=== PATIENT | female | born 1945 | race Caucasian/White ===

== ENCOUNTER 2018-11-26 10:08 | Day surgery (SDC) | payer BC ==
[2018-11-23 08:20] VITALS: BMI 30.6
[2018-11-26] MEDS ORDERED: LIDOCAINE VISCOUS 2% ORAL/TOP 20 ML UNIT-DOSE CUP ONE (10:46)
[2018-11-26 11:11] VITALS: TEMP 98
--- NOTE | 2018-11-26 12:43 | ECHO ---
Name: ARCHIBALD, MACY Exam:Transesophageal Echocardiogram Study Date: 11/26/2018 11:27 AM Age: 73 yrs Reason For Study: MITRAL REGURGITION Height: 61 in Weight: 154 lb BSA: 1.7 m2 Doppler Measurements & Calculations MV V2 max: 149.7 cm/sec MV max P.0 mmHg MV V2 mean: 98.4 cm/sec MV mean P.3 mmHg MV V2 VTI: 35.5 cm Procedure: A 2D transesophageal echocardiogram with Doppler and color flow Doppler was performed. Informed conse nt for Transesophageal Echocardiogram, and use of a contrast agent as needed, was obtained prior to the proc edure. The patient was brought to the endoscopy suite in a fasting state. An intravenous line was placed. A topical anesthetic agent was used for oropharangeal anesthesia. A bite block was inserted. IV concious sedati on was administered using propafol. A multifrequency, multiplane transesopheageal echocardiographic endoscop e was inserted and manipulated in the standard fashion to achieve multiplane views. The usual views were ob tained; basal, mid-esophageal, transgastric and aortic views. The patient's vital signs, including blood pres sure, heart rate, pulse oximetry and cardiac rhythm were monitored throughout the procedure and remained st able. The patient tolerated the procedure well without evidence of orophangeal or esophageal trauma. There were no complications. The patient was in normal sinus rhythm during the exam. Left Ventricle The left ventricle is normal in size. Left ventricular systolic function is normal. No regional wall motion abnormalities noted. Atria The left atrial size is normal. No thrombus is detected in the left atrial appendage. No left atrial mass or thrombus visualized. Injection of contrast documented no interatrial shunt. Mitral Valve There is mild mitral valve thickening. There is mild mitral annular calcification. There is moderate mitral regurgitation. Tricuspid Valve The tricuspid valve is not well visualized, but is grossly normal. There is mild to moderate tricuspi d regurgitation. Aortic Valve The aortic valve is normal in structure and function. No aortic regurgitation is present. Pulmonic Valve The pulmonic valve is not well visualized. There is no pulmonic valvular regurgitation. Great Vessels There is a small atherosclerotic plaque in descending thoracic aorta and distal aortic arch. Pericardium/Pluera There is no pericardial effusion. Interpretation Summary The left ventricle is normal in size. Left ventricular systolic function is normal. No regional wall motion abnormalities noted. The left atrial size is normal. No thrombus is detected in the left atrial appendage. No left atrial mass or thrombus visualized. Injection of contrast documented no interatrial shunt. There is mild mitral valve thickening. There is mild mitral annular calcification. There is moderate mitral regurgitation. There is mild to moderate tricuspid regurgitation. There is a small atherosclerotic plaque in descending thoracic aorta and distal aortic arch There is no pericardial effusion. Sloan Pinon MD 11/26/2018 12:42 PM
[2018-11-26 12:44] VITALS: BP 119/58; PULSE 75
== END 2018-11-26 12:50 | disposition home or self-care (01) ==
LOC: JASU-ENDO 10:08
PROVIDERS: ATTEND Internal Medicine Cardiovascular Disease
PROC: B246ZZ4 Ultrasonography of Right and Left Heart, Transesophageal (ICD-10-PCS; principal; 2018-11-26 11:00)
DX: I34.0 Nonrheumatic mitral (valve) insufficiency (principal); I10 Essential (primary) hypertension
CPT/HCPCS: 93312; 93325

== ENCOUNTER 2020-01-26 16:37 | Emergency (ER) | payer BC ==
[2020-01-26 17:16] VITALS: BP 140/65; PULSE 98; TEMP 99.5; BMI 27.3
[2020-01-26] MEDS ORDERED: LIDOCAINE VISCOUS 2% ORAL/TOP 20 ML UNIT-DOSE CUP MM ONE (18:01)
[2020-01-26] MEDS ORDERED: ASPIRIN 81 MG CHEWABLE TABLETS PO ONE (18:01)
[2020-01-26] MEDS ORDERED: MAG HYDROX/AL HYDROX/SIMETH 30 ML UNIT-DOSE CUP PO ONE (18:01)
[2020-01-26] MEDS ORDERED: LIDOCAINE VISCOUS 2% ORAL/TOP 20 ML UNIT-DOSE CUP ONE (18:24)
[2020-01-26] MEDS ORDERED: ASPIRIN 81 MG CHEWABLE TABLETS ONE (18:24)
[2020-01-26] MEDS ORDERED: MAG HYDROX/AL HYDROX/SIMETH 30 ML UNIT-DOSE CUP ONE (18:24)
--- NOTE | 2020-01-26 18:26 | PDOC ---
Documentation entered by Syed Nieves SCRIBE, acting as scribe for Emilia Worthington MD. Emilia Worthington MD: This documentation has been prepared by the Nikki sidhu Nirvannie, SCRIBE, under my direction and personally reviewed by me in its entirety. I confirm that the documentation accurately reflects all work, treatment, procedures, and medical decision making performed by me. Attending Attestation - Resident Resident Name: LevyRalph - ED Attending Attestation I have performed the following: I have examined & evaluated the patient, The case was reviewed & discussed with the resident, I agree w/resident's findings & plan, Exceptions are as noted - HPI HPI: 01/26/20 18:44 The patient is a 74 year old female with a significant past medical history of hypertension, hyperlipidemia, hypothyroidism, arthritis who presents to the ED with shortness of breath. As per patient, she was carrying a gallon of water up 7 steps and by the time she reached the top she experienced an episode of coug pallavi, choking, and felt short of breath. Patient notes her shortness of breath has since subsided but still endorses the coughing and choking sensation. Approximately 2 hours prior to walking up the stairs, the patient ate a chicken pot pie. - Physicial Exam PE: 01/26/20 19:05 awake alert post pharynx with mucous, cobblestones, bilat turbinate enlargement. lungs clear bilat heart rrr no mrg abd soft tn nd ext wwp. no edema. no calf tenderness. 01/26/20 19:20 - Medical Decision Making 01/26/20 19:20 74 yo male here w episode of chokcing sensation fullness in throat, with coughing fit after going up stairs, now resolved. no cp no dark stools. no f/c no recent cough. had eaten 2 hours prior. no h/o prior choking during feeds. no n/v no other complaints. plan labs trop ekg, cxr . cxr negative soft tissue neck normal. labs pending. will likely dc home if negative. recommend flonase, ENT followup. Heart Score/ECG Review #1 General ECG Interpretation: Sinus Rhythm, Normal Rate (78), Normal Intervals, No acute ischemic changes Discharge - Discharge Information Problems reviewed: Yes Clinical Impression/Diagnosis: SOB (shortness of breath), Cough, Globus sensation Condition: Stable Disposition: HOME - Admission No - Follow up/Referral Referrals: Angel Lindsey MD [Primary Care Provider] - Reggie Kidd MD [Staff Physician] - - Patient Discharge Instructions Patient Printed Discharge Instructions: DI for Shortness of Breath Additional Instructions: your chest xray is normal. you likley have post nasal drip you should use flonase nasal spray twice daily. your ekg is normal of your heart. you should follow up with ear nose and throat for persistant symtpms call dr Kidd to schedule. return for any problems or concerns. - Post Discharge Activity
--- NOTE | 2020-01-26 18:38 | PDOC ---
History of Present Illness - General Chief Complaint: Respiratory Stated Complaint: WEAKNESS,RESPIRATORY DISRESS Time Seen by Provider: 01/26/20 17:29 - History of Present Illness Initial Comments: 01/26/20 18:09 HPI: 74 y/o F with hx of HTN, HLD, hypothyroid, arthritis presenting with SOB after walking up the stairs. Patient was carrying 1gal of water up 7steps and when she reached the top she began having an episode of coughing and choking sensation and felt SOB. The SOB improved, but she still reports globus sensation and coughing. She was outside at a BBQ just prior to the episode. She denies any smoke or fire exposure. She last ate chicken pot pie 2hrs prior to the episode. She denies HENNING, LH, chest pain, palp, fever, chills, abd pain, n/v. She reports never having similar episode. Denies smoking or other irritants. PMHx: as noted above ROS: as noted SHx: Denies tobacco use; no alcohol use; no rec drugs Allergies: NKDA ROS: GENERAL/CONSTITUTIONAL: No fever or chills. No weakness. HEAD, EYES, EARS, NOSE AND THROAT: No change in vision. No ear pain or discharge. No sore throat. CARDIOVASCULAR: No chest pain; +shortness of breath RESPIRATORY: +cough GASTROINTESTINAL: No nausea, vomiting, diarrhea or constipation. GENITOURINARY: No dysuria, frequency, or change in urination. MUSCULOSKELETAL: No joint or muscle swelling or pain. No neck or back pain. SKIN: No rash NEUROLOGIC: No headache, vertigo, loss of consciousness, or change in strength/sensation. ENDOCRINE: No increased thirst. No abnormal weight change HEMATOLOGIC/LYMPHATIC: No anemia, easy bleeding, or history of blood clots. ALLERGIC/IMMUNOLOGIC: No hives or skin allergy. PE: GENERAL: Awake, alert, and fully oriented, no acute distress HEAD: No signs of trauma, normocephalic, atraumatic EYES: EOMI, sclera anicteric, conjunctiva clear ENT: Auricles normal inspection, hearing grossly normal, nares patent, oropharynx clear without exudates or foreign body. Moist mucosa NECK: Normal ROM, no lymphadenopathy, no stridor LUNGS: No increased work of breathing, symmetrical chest rise, clear to auscultation bilaterally, no wheezes, crackles or rhonchi, no stridor HEART: Regular rate, regular rhythm, normal S1 and S2, no murmur, peripheral pulses 2+ and equal bilaterally. ABDOMEN: Soft, nondistended, nontender. No guarding, no rebound. No masses. No CVAT MUSCULOSKELETAL: FROM NEUROLOGICAL: Cranial nerves II through XII grossly intact. Normal speech, no focal sensorimotor deficits SKIN: Warm, Dry, normal turgor, no rashes or lesions noted Past History - Medical History Allergies/Adverse Reactions: Allergies Allergy/AdvReac Type Severity Reaction Status Date / Time No Known Allergies Allergy Verified 03/28/14 12:16 Home Medications: Ambulatory Orders Levothyroxine [Synthroid -] 75 mcg PO DAILY 03/28/14 Metoprolol Succinate [Toprol XL -] 50 mg PO DAILY 03/28/14 Olmesartan Medoxomil [Benicar -] 40 mg PO DAILY 03/28/14 Chidester-3 Acid Ethyl Esters [Lovaza -] 2,000 mg PO BID 03/28/14 Rosuvastatin Calcium [Crestor] 20 mg PO DAILY 03/28/14 Aspirin [Ecotrin] 81 mg PO DAILY 11/23/18 Cardiac Disorders: Yes (MITRAL VALVE REGURGITATION) HTN: Yes Hypercholesterolemia: Yes Thyroid Disease: Yes (HYPOTHYROIDISM) - Psycho-Social/Smoking History Smoking History: Never smoked Have you smoked in the past 12 months: No - Substance Abuse Hx (Audit-C & DAST Scrn) How often the patient has a drink containing alcohol: Never Score: In Men: 4 or > Positive; In Women: 3 or > Positive: 0 Screen Result (Pos requires Nsg. Audit-10AR): Negative In the last yr the pt used illegal drug/Rx for NonMed reason: No Score: Yes response is considered Positive: 0 Screen Result (Positive result requires Nsg. DAST-10): Negative *Physical Exam - Vital Signs Last Vital Signs Temp Pulse Resp BP Pulse Ox 99.5 F 98 H 18 140/65 98 01/26/20 17:12 01/26/20 17:12 01/26/20 17:12 01/26/20 17:12 01/26/20 17:12 ED Treatment Course - LABORATORY CBC & Chemistry Diagram: 01/26/20 17:08 01/26/20 17:08 - RADIOLOGY Radiology Studies Ordered: Category Date Time Status CXRPORT [CHEST X-RAY PORTABLE*] [RAD] Stat Radiology 01/26/20 18:01 Ordered NECK SOFT TISSUE [RAD] Stat Radiology 01/26/20 18:01 Ordered Medical Decision Making - Medical Decision Making 01/26/20 18:39 74 y/o F with hx of HTN, HLD, hypothyroid, arthritis presenting with SOB after w alking up the stairs associated with an episode choking and couighing. VSS, AF. PE unremarkable. DDx includes atypical ACS, gastritis/GERD, post nasal, allergies, retained food, irritation/allergen -cbc, cmp, coags, card prof, mg, ekg, cxr, XR neck -maalox, viscous lido, ASA, po hydration -reassess 01/26/20 19:27 labs wnl ekg normal cxr with no acute pathology discussed with patient; will Dc home with ent followup all questions asnwered Discharge - Discharge Information Problems reviewed: Yes Clinical Impression/Diagnosis: SOB (shortness of breath), Cough, Globus sensation Condition: Stable Disposition: HOME - Follow up/Referral Referrals: Angel Lindsey MD [Primary Care Provider] - Reggie Kidd MD [Staff Physician] - - Patient Discharge Instructions Patient Printed Discharge Instructions: DI for Shortness of Breath Additional Instructions: your chest xray is normal. you likley have post nasal drip you should use flonase nasal spray twice daily. your ekg is normal of your heart. you should follow up with ear nose and throat for persistant symtpms call dr Kidd to schedule. return for any problems or concerns. - Post Discharge Activity
[2020-01-26 18:41] LABS: BASO % 0.5 % (0-2.0); EOS % 1.9 % (0-4.5); HEMATOCRIT 42.7 % (32.4-45.2); HEMOGLOBIN 13.7 GM/dL (10.7-15.3); LYMPH % 25.2 % (8-40); MCH 28.3 pg (25.7-33.7); MCHC 32.1 g/dl (32.0-36.0); MEAN CELL VOLUME 88.1 fl (80-96); MEAN PLT VOLUME 9.7 fl (7.5-11.1); MONO % 9.7 % (3.8-10.2); NEUT % 62.7 % (42.8-82.8); PLATELET COUNT 196 K/MM3 (134-434); RBC 4.85 M/mm3 (3.60-5.2); WHITE BLOOD COUNT 10.4 K/mm3 (4.0-10.0)
[2020-01-26 18:47] LABS: INR 0.97 (0.83-1.09); PROTHROMBIN TIME (PATIENT) 11.5 SEC (9.7-13.0)
[2020-01-26 19:25] LABS: ALK PHOS 85 U/L (45-117); ANION GAP 12 MMOL/L (8-16); BILIRUBIN,TOTAL 0.2 mg/dL (0.2-1); BLOOD UREA NITROGEN 18.5 mg/dL (7-18); CALCIUM 9.6 mg/dL (8.5-10.1); CHLORIDE 106 mmol/L (98-107); CO2 23 mmol/L (21-32); CREATININE 1.3 mg/dL (0.55-1.3); GLUCOSE,RANDOM 94 mg/dL (74-106); MAGNESIUM 2.5 mg/dL (1.8-2.4); POTASSIUM 4.4 mmol/L (3.5-5.1); SGOT/AST 27 U/L (15-37); SGPT/ALT 19 U/L (13-61); SODIUM 141 mmol/L (136-145); TOT PROT 7.3 g/dl (6.4-8.2)
--- NOTE | 2020-01-27 10:27 | EKG ---
Test Reason : Blood Pressure : / mmHG Vent. Rate : 078 BPM Atrial Rate : 078 BPM P-R Int : 150 ms QRS Dur : 082 ms QT Int : 388 ms P-R-T Axes : 062 071 056 degrees QTc Int : 442 ms NORMAL SINUS RHYTHM POSSIBLE LEFT ATRIAL ENLARGEMENT BORDERLINE ECG WHEN COMPARED WITH ECG OF 28-MAR-2014 12:51, NO SIGNIFICANT CHANGE WAS FOUND Confirmed by Esther Barragan ([id number]) on 01/27/2020 10:27:35 AM Referred By: Confirmed By:Esther Barragan
== END 2020-01-26 19:58 | disposition home or self-care (01) ==
LOC: JER 16:37
DX: R06.02 Shortness of breath (principal); R05 Cough; F45.8 Other somatoform disorders
CPT/HCPCS: 36415; 70360-TC-FY; 71045-TC-FY; 80053; 82550; 83735; 84484; 85025; 85610; 85730; 93005; 93010; 99285-25

== ENCOUNTER 2023-09-29 09:19 | Inpatient (IN) | payer BC ==
[2023-09-29] MEDS ORDERED: PANTOPRAZOLE SODIUM 40 MG VIAL ONE ×3 (09:43→13:30)
[2023-09-29] MEDS: PANTOPRAZOLE SODIUM 40 MG VIAL IVPUSH ONE (09:48)
[2023-09-29] MEDS: LACTATED RINGERS SOLUTION 1000 ML INFUS.BAG IV ONE (09:48)
[2023-09-29 10:14] LABS: BASO % 0.8 % (0-2.0); EOS % 0.7 % (0-4.5); HEMATOCRIT 28.3 % (32.4-45.2); HEMOGLOBIN 9.1 GM/dL (10.7-15.3); LYMPH % 13.7 % (8-40); MCH 28.1 pg (25.7-33.7); MCHC 32.1 g/dl (32.0-36.0); MEAN CELL VOLUME 87.5 fl (80-96); MEAN PLT VOLUME 9.2 fl (7.5-11.1); MONO % 6.4 % (3.8-10.2); NEUT % 78.4 % (42.8-82.8); PLATELET COUNT 189 10^3/uL (134-434); RBC 3.24 M/mm3 (3.60-5.2); RDW 13.7 % (11.6-15.6); WHITE BLOOD COUNT 10.5 K/mm3 (4.0-10.0)
[2023-09-29 10:22] LABS: INR 1.12 (0.83-1.09)
[2023-09-29 10:25] LABS: ACTIVATED PTT 24.6 SECONDS (25.2-36.5); POTASSIUM 4.3 mmol/L (3.5-5.1)
[2023-09-29 10:27] LABS: CALCIUM 8.7 mg/dL (8.5-10.1)
[2023-09-29 10:28] LABS: ALBUMIN 3.1 g/dl (3.4-5.0); BLOOD UREA NITROGEN 51.4 mg/dL (7-18); MAGNESIUM 2.3 mg/dL (1.8-2.4)
[2023-09-29 10:31] LABS: CREATININE 0.9 mg/dL (0.55-1.3)
[2023-09-29 10:32] LABS: BILIRUBIN,TOTAL 0.3 mg/dL (0.2-1)
[2023-09-29 11:57] LABS: BASO % 0.6 % (0-2.0); EOS % 0.1 % (0-4.5); HEMATOCRIT 26.9 % (32.4-45.2); HEMOGLOBIN 8.7 GM/dL (10.7-15.3); LYMPH % 8.7 % (8-40); MCH 28.4 pg (25.7-33.7); MCHC 32.2 g/dl (32.0-36.0); MEAN PLT VOLUME 9.4 fl (7.5-11.1); MONO % 5.6 % (3.8-10.2); PLATELET COUNT 180 10^3/uL (134-434); RBC 3.05 M/mm3 (3.60-5.2); RDW 13.7 % (11.6-15.6); WHITE BLOOD COUNT 10.8 K/mm3 (4.0-10.0)
[2023-09-29] MEDS: PANTOPRAZOLE SODIUM 160 MG in SODIUM CHLORIDE 290 ML IVPB SCH (13:28)
[2023-09-30 07:33] LABS: BASO % 0.7 % (0-2.0); EOS % 0.6 % (0-4.5); HEMATOCRIT 28.3 % (32.4-45.2); LYMPH % 19.9 % (8-40); MCH 27.8 pg (25.7-33.7); MCHC 31.9 g/dl (32.0-36.0); MEAN PLT VOLUME 9.4 fl (7.5-11.1); MONO % 8.3 % (3.8-10.2); NEUT % 70.5 % (42.8-82.8); PLATELET COUNT 198 10^3/uL (134-434); RBC 3.25 M/mm3 (3.60-5.2); RDW 13.5 % (11.6-15.6); WHITE BLOOD COUNT 9.3 K/mm3 (4.0-10.0)
[2023-09-30 08:08] LABS: ALBUMIN 3.4 g/dl (3.4-5.0); CALCIUM 9.1 mg/dL (8.5-10.1)
[2023-09-30 08:09] LABS: BLOOD UREA NITROGEN 34.8 mg/dL (7-18); MAGNESIUM 2.2 mg/dL (1.8-2.4)
[2023-09-30 08:12] LABS: CREATININE 0.8 mg/dL (0.55-1.3); PHOSPHOROUS 3.3 mg/dL (2.5-4.9)
[2023-09-30 08:13] LABS: BILIRUBIN,TOTAL 0.6 mg/dL (0.2-1)
[2023-09-30 08:14] LABS: TOT PROT 6.1 g/dl (6.4-8.2)
[2023-09-30] MEDS: LEVOTHYROXINE NA 50 MCG TABLET (FP) PO SCH (10:11)
[2023-09-30] MEDS: FUROSEMIDE 20 MG TABLET (FP) PO SCH (10:11)
[2023-09-30] MEDS ORDERED: ACETAMINOPHEN 1000 MG/100 ML BAG IVPB PRN (10:23)
[2023-09-30] MEDS: LACTATED RINGERS SOLUTION 1,000 ML/1,000 ML INFUS.BAG IV SCH (14:46)
[2023-09-30] MEDS: ZOLPIDEM TARTRATE 5 MG TABLET PO ONE (22:19)
[2023-10-01] MEDS: ACETAMINOPHEN 500 MG TABLET (FP) PO PRN (15:02)
[2023-10-01 16:22] VITALS: BMI 23.0
[2023-10-02 08:41] LABS: BASO % 0.8 % (0-2.0); EOS % 2.2 % (0-4.5); HEMATOCRIT 28.2 % (32.4-45.2); HEMOGLOBIN 9.4 GM/dL (10.7-15.3); MCH 28.5 pg (25.7-33.7); MCHC 33.2 g/dl (32.0-36.0); MEAN CELL VOLUME 85.8 fl (80-96); MEAN PLT VOLUME 9.9 fl (7.5-11.1); MONO % 9.3 % (3.8-10.2); NEUT % 69.7 % (42.8-82.8); PLATELET COUNT 216 10^3/uL (134-434); RBC 3.29 M/mm3 (3.60-5.2); WHITE BLOOD COUNT 8.7 K/mm3 (4.0-10.0)
[2023-10-02 09:03] LABS: POTASSIUM 3.4 mmol/L (3.5-5.1)
[2023-10-02 09:07] LABS: ALBUMIN 3.5 g/dl (3.4-5.0); BLOOD UREA NITROGEN 24.8 mg/dL (7-18)
[2023-10-02 09:10] LABS: CREATININE 1.1 mg/dL (0.55-1.3)
[2023-10-02 09:11] LABS: CALCIUM 9.3 mg/dL (8.5-10.1); TOT PROT 6.4 g/dl (6.4-8.2)
[2023-10-02 09:12] LABS: BILIRUBIN,TOTAL 0.7 mg/dL (0.2-1)
[2023-10-02] MEDS: KCL 10 MEQ IVPB 10 MEQ/100 ML INFUS.BAG IVPB SCH (11:38)
[2023-10-02 13:31] VITALS: RESP 18
[2023-10-02 18:59] VITALS: BP 121/61; PULSE 69; TEMP 98.4
[2023-10-02] MEDS ORDERED: PANTOPRAZOLE 40 MG TABLET PO SCH (22:00)
== END 2023-10-02 19:12 | disposition home or self-care (01) | DRG 379 ==
LOC: JER 09:19 → JERBED 10:47 → J7W 09-30 14:06
PROVIDERS: ADMIT Internal Medicine; ATTEND Internal Medicine
PROC: 0DB68ZX Excision of Stomach, Via Natural or Artificial Opening Endoscopic, Diagnostic (ICD-10-PCS; principal; 2023-10-02 13:00)
DX: K29.61 Other gastritis with bleeding (principal); K92.1 Melena; I10 Essential (primary) hypertension; E78.5 Hyperlipidemia, unspecified; K25.9 Gastric ulcer, unspecified as acute or chronic, without hemorrhage or perforation; K92.0 Hematemesis; Z95.0 Presence of cardiac pacemaker
CPT/HCPCS: 36415; 71045-TC-FY; 80053; 82272; 83605; 83690; 83735; 84100; 84443; 85025; 85610; 85730; 86850; 86900; 86901; 88305-TC; 88341-TC; 93005; 93010; 93306-TC; 93970-TC; 99285-25

== ENCOUNTER 2023-11-14 14:17 | Inpatient (IN) | payer BC ==
[2023-11-14 15:59] LABS: EOS % 0.5 % (0-4.5); HEMATOCRIT 18.3 % (32.4-45.2); INR 1.21 (0.83-1.09); LYMPH % 21.6 % (8-40); MCH 20.2 pg (25.7-33.7); MCHC 29.6 g/dl (32.0-36.0); MEAN CELL VOLUME 68.3 fl (80-96); MEAN PLT VOLUME 8.3 fl (7.5-11.1); MONO % 9.1 % (3.8-10.2); NEUT % 67.8 % (42.8-82.8); PLATELET COUNT 307 10^3/uL (134-434); RBC 2.67 M/mm3 (3.60-5.2); RDW 24.5 % (11.6-15.6); WHITE BLOOD COUNT 7.1 K/mm3 (4.0-10.0)
[2023-11-14 16:01] LABS: HEMOGLOBIN 5.4 GM/dL (10.7-15.3)
[2023-11-14 16:02] LABS: ACTIVATED PTT 25.9 SECONDS (25.2-36.5)
[2023-11-14 16:26] LABS: ANISOCYTOSIS 3+; MACROCYTOSIS 0
[2023-11-14] MEDS: LACTATED RINGERS SOLUTION 1000 ML INFUS.BAG IV ONE (16:29)
[2023-11-14 16:55] LABS: CHLORIDE 112 mmol/L (98-107); POTASSIUM 3.9 mmol/L (3.5-5.1); SODIUM 142 mmol/L (136-145)
[2023-11-14 16:58] LABS: ALBUMIN 3.7 g/dl (3.4-5.0); ANION GAP 6 mmol/L (4-13); BLOOD UREA NITROGEN 13.2 mg/dL (7-18); CALCIUM 9.2 mg/dL (8.5-10.1); CO2 25 mmol/L (21-32); GLUCOSE,RANDOM 97 mg/dL (74-106); MAGNESIUM 2.7 mg/dL (1.8-2.4)
[2023-11-14 17:01] LABS: CREATININE 0.9 mg/dL (0.55-1.3); PHOSPHOROUS 2.8 mg/dL (2.5-4.9); SGOT/AST 11 U/L (15-37); SGPT/ALT 12 U/L (13-61)
[2023-11-14 17:02] LABS: BILIRUBIN,TOTAL 0.6 mg/dL (0.2-1); TOT PROT 7.1 g/dl (6.4-8.2)
[2023-11-14 17:04] LABS: ALK PHOS 77 U/L (45-117)
[2023-11-14] MEDS ORDERED: PANTOPRAZOLE SODIUM 40 MG VIAL ONE ×2 (18:10→22:02)
[2023-11-14] MEDS: PANTOPRAZOLE SODIUM 40 MG VIAL IVPUSH ONE (18:25)
[2023-11-14] MEDS ORDERED: CEFTRIAXONE 1 GM/50 ML BAG ONE (21:58)
[2023-11-14] MEDS: CEFTRIAXONE 1 GM in DEXTROSE 5%-WATER - 50 ML IVPB SCH (22:01)
[2023-11-14] MEDS: PANTOPRAZOLE SODIUM 40 MG VIAL IVPUSH SCH (22:06)
[2023-11-15 04:06] VITALS: RESP 18; BMI 25.8
[2023-11-15] MEDS: LEVOTHYROXINE NA 75 MCG TABLET (FP) PO SCH (06:30)
[2023-11-15 07:23] LABS: HEMATOCRIT 26.7 % (32.4-45.2); HEMOGLOBIN 8.9 GM/dL (10.7-15.3); MCH 24.1 pg (25.7-33.7); MCHC 33.4 g/dl (32.0-36.0); MEAN CELL VOLUME 72.2 fl (80-96); MEAN PLT VOLUME 8.6 fl (7.5-11.1); PLATELET COUNT 238 10^3/uL (134-434); RBC 3.69 M/mm3 (3.60-5.2); RDW 23.1 % (11.6-15.6); WHITE BLOOD COUNT 10.8 K/mm3 (4.0-10.0)
[2023-11-15 07:50] LABS: POTASSIUM 3.7 mmol/L (3.5-5.1)
[2023-11-15 07:56] LABS: BLOOD UREA NITROGEN 10.6 mg/dL (7-18); MAGNESIUM 2.3 mg/dL (1.8-2.4)
[2023-11-15 07:57] LABS: ALBUMIN 3.5 g/dl (3.4-5.0)
[2023-11-15 07:59] LABS: CREATININE 0.8 mg/dL (0.55-1.3); PHOSPHOROUS 2.6 mg/dL (2.5-4.9)
[2023-11-15 08:00] LABS: BILIRUBIN,TOTAL 2.5 mg/dL (0.2-1); TOT PROT 6.4 g/dl (6.4-8.2)
[2023-11-15 08:42] LABS: PH,URINE 7.5 (5.0-8.0); URINE APPEARANCE CLEAR; URINE BILIRUBIN NEGATIVE (NEGATIVE); URINE COLOR YELLOW; URINE GLUCOSE (UA) NEGATIVE (NEGATIVE); URINE KETONE TRACE (NEGATIVE); URINE LEUK ESTERASE NEGATIVE (NEGATIVE); URINE NITRITE NEGATIVE (NEGATIVE); URINE PROTEIN NEGATIVE (NEGATIVE); URINE UROBILINOGEN 0.2 mg/dL (0.2-1.0)
[2023-11-15] MEDS: ACETAMINOPHEN 325 MG TABLET (FP) PO ONE (09:29)
[2023-11-15] MEDS: ROSUVASTATIN CA 20 MG TABLET PO SCH (09:30)
[2023-11-15] MEDS: LOSARTAN POTASSIUM 50 MG TABLET PO SCH (09:30)
[2023-11-15] MEDS: IRON SUCROSE INJECTION 200 MG in SODIUM CHLORIDE 100 ML IVPB ONE (09:30)
[2023-11-15] MEDS ORDERED: PANTOPRAZOLE 40 MG TABLET PO SCH (10:00)
[2023-11-15] MEDS ORDERED: PATIENT'S OWN MEDICATION (NON-FORMULARY) (Olmesartan Medoxomil 40 MG Tablet) PO SCH (10:00)
[2023-11-15 15:26] LABS: HEMATOCRIT 27.5 % (32.4-45.2); HEMOGLOBIN 8.9 GM/dL (10.7-15.3); MCH 23.3 pg (25.7-33.7); MCHC 32.2 g/dl (32.0-36.0); MEAN CELL VOLUME 72.4 fl (80-96); MEAN PLT VOLUME 8.2 fl (7.5-11.1); PLATELET COUNT 241 10^3/uL (134-434); RDW 23.2 % (11.6-15.6); WHITE BLOOD COUNT 9.7 K/mm3 (4.0-10.0)
[2023-11-15] MEDS: PANTOPRAZOLE 40 MG TABLET PO SCH (22:05)
[2023-11-16] MEDS: ACETAMINOPHEN 325 MG TABLET (FP) PO ONE (06:52)
[2023-11-16 07:17] LABS: BASO % 0.6 % (0-2.0); EOS % 3.3 % (0-4.5); HEMATOCRIT 28.9 % (32.4-45.2); HEMOGLOBIN 9.3 GM/dL (10.7-15.3); LYMPH % 23.3 % (8-40); MCH 23.7 pg (25.7-33.7); MCHC 32.4 g/dl (32.0-36.0); MEAN CELL VOLUME 73.4 fl (80-96); MEAN PLT VOLUME 8.7 fl (7.5-11.1); MONO % 13.4 % (3.8-10.2); NEUT % 59.4 % (42.8-82.8); PLATELET COUNT 234 10^3/uL (134-434); RBC 3.94 M/mm3 (3.60-5.2); RDW 23.6 % (11.6-15.6); WHITE BLOOD COUNT 8.6 K/mm3 (4.0-10.0)
[2023-11-16 07:22] LABS: POTASSIUM 3.6 mmol/L (3.5-5.1)
[2023-11-16 07:24] LABS: CALCIUM 8.9 mg/dL (8.5-10.1)
[2023-11-16 07:25] LABS: ALBUMIN 3.8 g/dl (3.4-5.0); BLOOD UREA NITROGEN 11.4 mg/dL (7-18)
[2023-11-16 07:30] LABS: BILIRUBIN,TOTAL 0.9 mg/dL (0.2-1); TOT PROT 6.6 g/dl (6.4-8.2)
[2023-11-16 18:21] VITALS: BP 128/64; PULSE 70; TEMP 98.1
== END 2023-11-16 18:28 | disposition home or self-care (01) | DRG 812 ==
LOC: JER 14:17 → JERBED 18:08 → OBSVTOIN 19:31 → J4W 11-15 00:58
PROVIDERS: ADMIT Internal Medicine; ATTEND Family Medicine
PROC: 30233N1 Transfusion of Nonautologous Red Blood Cells into Peripheral Vein, Percutaneous Approach (ICD-10-PCS; principal; 2023-11-14)
DX: D64.9 Anemia, unspecified (principal); I24.89 Other forms of acute ischemic heart disease; I31.9 Disease of pericardium, unspecified; I10 Essential (primary) hypertension; E78.5 Hyperlipidemia, unspecified; I49.3 Ventricular premature depolarization; E03.9 Hypothyroidism, unspecified; R79.89 Other specified abnormal findings of blood chemistry; F03.90 Unspecified dementia, unspecified severity, without behavioral disturbance, psychotic disturbance, mood disturbance, and anxiety; R00.1 Bradycardia, unspecified; Z95.0 Presence of cardiac pacemaker
CPT/HCPCS: 0241U-QW; 36415; 36430; 71045-TC-FY; 80053; 81003; 82248; 82272; 82550; 83036; 83540; 83550; 83735; 84100; 84443; 84484; 85025; 85027; 85610; 85730; 86850; 86900; 86901; 86922; 87040; 87086; 93005; 93010; 93306-TC; 99291; G0378; J1756; P9058